=== PATIENT | female | born 1945 | race Native Hawaiian/Other Pacific Islander ===

== ENCOUNTER 2020-11-14 12:57 | Outpatient (CLI) | payer OTHER | END 2020-11-14 21:37 | disposition home or self-care (01) | LOC: INF 12:57 | PROVIDERS: ATTEND Internal Medicine Endocrinology, Diabetes & Metabolism | DX: Z23 Encounter for immunization (principal) | CPT/HCPCS: 96372 ==

== ENCOUNTER 2020-12-12 11:54 | Outpatient (CLI) | payer OTHER | END 2020-12-12 19:53 | disposition home or self-care (01) | LOC: INF 11:54 | PROVIDERS: ATTEND Internal Medicine Endocrinology, Diabetes & Metabolism | DX: Z23 Encounter for immunization (principal) | CPT/HCPCS: 96372 ==